=== PATIENT | female | born 1995 | race Hispanic/Latino ===

== ENCOUNTER 2019-09-22 14:26 | Emergency (ER) | payer BC ==
--- NOTE | 2019-09-22 15:58 | EDPHYS ---
Physician Documentation [facility] Name: Shania Groves Age: 24 yrs Sex: Female : 1995 Arrival Date: 09/22/2019 Time: 14:35 Bed 6 Private MD: ED Physician Uday Jc HPI: 09/21 15:39 This 24 yrs old Female presents to ER via Ambulatory with complaints of Cold jr8 Symptoms, Cough, Headache. 15:53 Cough, congestion, headache, subjective fever, body aches, sore throat, ear pain for 2 jr8 days. Concerned she has COVID and wanted to be evaluated . Onset: The symptoms/episode began/occurred yesterday. Severity of symptoms: At their worst the symptoms were mild in the emergency department the symptoms are unchanged. The patient has not experienced similar symptoms in the past. The patient has not recently seen a physician. 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 - Social history:: Smoking status: Patient denies any tobacco usage or history of. Patient uses alcohol, only on a social basis. Patient/guardian denies using street drugs, tobacco products. ROS: 15:53 Eyes: Negative for injury, pain, redness, and discharge, Neck: Negative for injury, jr8 pain, and swelling, Cardiovascular: Negative for chest pain, palpitations, and edema, Abdomen/GI: Negative for abdominal pain, nausea, vomiting, diarrhea, and constipation, Back: Negative for injury and pain, MS/Extremity: Negative for injury and deformity, Skin: Negative for injury, rash, and discoloration. 15:53 Constitutional: Positive for body aches, chills, fatigue, malaise. 15:53 ENT: Positive for ear pain, sore throat. 15:53 Respiratory: Positive for cough, Negative for dyspnea on exertion, shortness of breath, sputum production, wheezing. 15:53 Neuro: Positive for headache. Exam: 15:53 Constitutional: This is a well developed, well nourished patient who is awake, alert, jr8 and in no acute distress. Eyes: Pupils equal round and reactive to light, extra-ocular motions intact. Lids and lashes normal. Conjunctiva and sclera are non-icteric and not injected. Cornea within normal limits. Periorbital areas with no swelling, redness, or edema. ENT: Nares patent. No nasal discharge, no septal abnormalities noted. Tympanic membranes are normal and external auditory canals are clear. Oropharynx with no redness, swelling, or masses, exudates, or evidence of obstruction, uvula midline. Mucous membranes moist. Neck: Trachea midline, no thyromegaly or masses palpated, and no cervical lymphadenopathy. Supple, full range of motion without nuchal rigidity, or vertebral point tenderness. No Meningismus. Cardiovascular: Regular rate and rhythm with a normal S1 and S2. No gallops, murmurs, or rubs. Normal PMI, no JVD. No pulse deficits. Respiratory: Lungs have equal breath sounds bilaterally, clear to auscultation and percussion. No rales, rhonchi or wheezes noted. No increased work of breathing, no retractions or nasal flaring. Abdomen/GI: Soft, non-tender, with normal bowel sounds. No distension or tympany. No guarding or rebound. No evidence of tenderness throughout. Back: No spinal tenderness. No costovertebral tenderness. Full range of motion. Skin: Warm, dry with normal turgor. Normal color with no rashes, no lesions, and no evidence of cellulitis. MS/ Extremity: Pulses equal, no cyanosis. Neurovascular intact. Full, normal range of motion. Neuro: Awake and alert, GCS 15, oriented to person, place, time, and situation. Cranial nerves II-XII grossly intact. Motor strength 5/5 in all extremities. Sensory grossly intact. Cerebellar exam normal. Normal gait. Vital Signs: 14:42 BP 128 / 93; Pulse 77; Resp 17; Temp 98.2; Pulse Ox 98% ; Pain 9/10; ll1 MDM: 14:55 Patient medically screened. jr8 15:53 Data reviewed: vital signs, nurses notes, lab test result(s), and as a result, I will jr8 discharge patient. Data interpreted: Pulse oximetry: on room air is 98 %. Interpretation: normal. Counseling: I had a detailed discussion with the patient and/or guardian regarding: the historical points, exam findings, and any diagnostic results supporting the discharge/admit diagnosis, lab results, the need for outpatient follow up, a family practitioner, to return to the emergency department if symptoms worsen or persist or if there are any questions or concerns that arise at home. ED course: Discussed with patient that she needs to continue to isolate at home until PCR results come back. If she were to feel worse or start to have shortness of breath to come back for further medical evaluation . 09/21 15:08 Order name: SEMAJ em Administered Medications: No medications were administered Disposition: 16:13 Co-signature as Attending Physician, Uday Jc MD. rn Disposition: 09/22/19 15:57 Discharged to Home. Impression: Viral infection, unspecified. - Condition is Stable. - Discharge Instructions: COVID-19. - Medication Reconciliation Form, Thank You Letter, Antibiotic Education, Prescription Opioid Use form. - Follow up: Private Physician; When: As needed; Reason: Recheck today's complaints, Continuance of care, Re-evaluation by your physician. - Problem is new. - Symptoms are unchanged. Signatures: Dispatcher [employer] Gm Jose RN RN Uday Callaway MD MD rn Roszak, Josh, PA PA jrGerald Taylor RN RN ll1 Corrections: (The following items were deleted from the chart) 16:08 15:57 09/22/2019 15:57 Discharged to Home. Impression: Viral infection, unspecified. em Condition is Stable. Forms are Medication Reconciliation Form, Thank You Letter, Antibiotic Education, Prescription Opioid Use. Follow up: Private Physician; When: As needed; Reason: Recheck today's complaints, Continuance of care, Re-evaluation by your physician. Problem is new. Symptoms are unchanged. jr8
--- NOTE | 2019-09-22 15:58 | ER ---
Nurse's Notes [facility] Name: Shania Groves Age: 24 yrs Sex: Female : 1995 Arrival Date: 09/22/2019 Time: 14:35 Bed 6 Private MD: Diagnosis: Viral infection, unspecified Presentation: 09/21 14:42 Chief complaint: Patient states: Cough, congestion, right ear pain, body aches, no ll1 appetite for 3 days. Fever 99.2 last night. Coronavirus screen: Surgical mask placed on patient. Patient moved to private room, placed in contact and droplet isolation with eye protection until further assessment. Patient reports a cough. Patient denies shortness of breath or difficulty breathing. Patient denies measured and/or subjective temperature greater than 100.4F prior to today's visit. Patient denies travel on a cruise ship or to a country the [facility] currently lists as an affected area. Patient denies contact with known and/or suspected case of COVID-19. Ebola Screen: Patient denies travel to an Ebola-affected area in the 21 days before illness onset. Initial Sepsis Screen: Does the patient meet any 2 criteria? No. Patient's initial sepsis screen is negative. Does the patient have a suspected source of infection? No. Patient's initial sepsis screen is negative. Risk Assessment: Do you want to hurt yourself or someone else? Patient reports no desire to harm self or others. Onset of symptoms was September 20, 2019. 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 - Social history:: Smoking status: Patient denies any tobacco usage or history of. Patient uses alcohol, only on a social basis. Patient/guardian denies using street drugs, tobacco products. Screenin:59 Abuse screen: Denies threats or abuse. Nutritional screening: No deficits noted. em Tuberculosis screening: No symptoms or risk factors identified. Fall Risk None identified. Assessment: 15:00 General: Appears in no apparent distress. uncomfortable, slender, Behavior is calm, em cooperative, appropriate for age, Reports fever for 2-3 days, feeling ill for 2-3 days, fatigue for 2-3 days. Pain: Complains of pain in head Pain currently is 9 out of 10 on a pain scale. Neuro: Level of Consciousness is awake, alert, obeys commands, Oriented to person, place, time, situation, Appropriate for age. Cardiovascular: Capillary refill < 3 seconds Patient's skin is warm and dry. Respiratory: Airway is patent Respiratory effort is even, unlabored, Respiratory pattern is regular, symmetrical. GI: Reports intolerance of fluids, intolerance of food, since 2 days. Derm: Skin is intact, is healthy with good turgor, Skin is pink, warm \T\ dry. Musculoskeletal: Capillary refill < 3 seconds, Range of motion: intact in all extremities. Vital Signs: 14:42 BP 128 / 93; Pulse 77; Resp 17; Temp 98.2; Pulse Ox 98% ; Pain 9/10; ll1 ED Course: 14:35 Patient arrived in ED. fj1 14:44 Triage completed. ll1 14:44 Arm band placed on Patient placed in an exam room, on a stretcher. ll1 14:51 Gm Klein, BONNY is Primary Nurse. em 14:55 Tae Mills PA is PHCP. jr8 14:55 Uday Jc MD is Attending Physician. jr8 14:59 Patient has correct armband on for positive identification. Placed in gown. Bed in low em position. 16:08 No provider procedures requiring assistance completed. Patient did not have IV access em during this emergency room visit. Administered Medications: No medications were administered Outcome: 15:57 Discharge ordered by . jr8 16:08 Discharged to home ambulatory. em 16:08 Condition: good 16:08 Discharge instructions given to patient, Instructed on discharge instructions, follow up and referral plans. Demonstrated understanding of instructions, follow-up care. 16:08 Patient left the ED. em Addendum: 09/24/2019 12:16 Addendum: Other Dr. Peres notified pt of positive COVID result, pt advised to i w quarantine for at least 14 days and at least until symptom free for 72 hours. Signatures: Gm Klein RN RN Glenis Nassar RN RN Tae Mills PA PA jr8 James, Frank [facility] Gerald Mo RN RN [facility]
--- OUTSIDE RECORDS SUMMARY | 2019-09-22 16:35 | XMS REPORT | Continuity of Care Document ---
:1995 Author Organization [facility] t Address [address] [place] [address] Dr. Robbins [address] [place] [id number] Care Team Providers Name Role Phone Unavailable Unavailable Unavailable Problems This patient has no known problems. Allergies, Adverse Reactions, Alerts This patient has no known allergies or adverse reactions. Medications This patient has no known medications. Procedures This patient has no known procedures. Encounters Start End Encounter Admission Attending Care Care Encounter Source Date/Time Date/Time Type Type Clinicians Facility Department ID 2019-02-22 Outpatient [facility] [id number] [facility] 15:07:08 2018-08-25 2018-08-25 Outpatient [facility] [address] [facility] 08:59:00 08:59:00 Results This patient has no known results.
[2019-09-22 18:43] VITALS: BP 128/93; TEMP 98.2; O2SAT 98
== END 2019-09-22 16:08 | disposition home or self-care (01) ==
LOC: ER 14:26
DX: U07.1 COVID-19 (principal); B34.9 Viral infection, unspecified; I10 Essential (primary) hypertension
CPT/HCPCS: 99281; U0001

== ENCOUNTER 2020-02-13 17:34 | Emergency (ER) | payer BC ==
--- OUTSIDE RECORDS SUMMARY | 2020-02-13 17:36 | XMS REPORT | Continuity of Care Document ---
:1995 Author Organization [facility] t Address [address] [place] [address] Dr. Robbins [address] [place] [id number] Care Team Providers Name Role Phone Unavailable Unavailable Unavailable Problems This patient has no known problems. Allergies, Adverse Reactions, Alerts This patient has no known allergies or adverse reactions. Medications This patient has no known medications. Procedures This patient has no known procedures. Encounters Start End Encounter Admission Attending Care Care Encounter Source Date/Time Date/Time Type Type Clinicians Facility Department ID 2019-02-22 Outpatient [facility] [id number] [facility] 15:07:08 2020-01-14 2020-01-14 Outpatient [facility] [id number] [facility] 08:44:00 08:44:00 2019-12-27 2019-12-27 Outpatient [facility] [id number] [facility] 05:57:00 05:57:00 2019-12-10 2019-12-10 Outpatient [facility] [id number] [facility] 07:44:00 07:44:00 2018-08-25 2018-08-25 Outpatient [facility] [address] [facility] 08:59:00 08:59:00 Results This patient has no known results.
[2020-02-13] MEDS ORDERED: ONDANSETRON 4 MG/2 ML VIAL ONE (18:15)
[2020-02-13] MEDS ORDERED: NA CHLORIDE 0.9% 1,000 ML ONE (18:16)
[2020-02-13 18:20] LABS: Urine Specific Gravity 1.025 (1.005-1.030)
[2020-02-13 18:20] LABS: Urine Blood 3+ (NEG); Urine Glucose NEGATIVE (NEG); Urine Protein 1+ (NEG); Urine Specific Gravity 1.025 (1.005-1.030)
[2020-02-13 18:22] LABS: Urine Bacteria <20 /HPF (<20); Urine Culture Reflex Order NOT NEEDED; Urine RBC >50 /HPF (NONE SEEN)
[2020-02-13 18:29] LABS: Absolute Lymphocytes (CBC) 1.4 K/uL (0.7-4.9); Basophils % 0.6 % (0-1.3); Hematocrit 32.2 % (36.0-45.0); Lymphocytes % 23.9 % (15.3-44.8); RBC Red Blood Cell Count 3.57 M/uL (3.86-4.86)
[2020-02-13 18:44] LABS: ALT/SGPT 260 U/L (12-78); AST/SGOT 182 U/L (15-37); Albumin 3.7 g/dL (3.4-5.0); Alkaline Phosphatase 954 U/L (45-117); BUN Blood Urea Nitrogen 11 mg/dL (7-18); Bicarbonate 25 mmol/L (21-32); Bilirubin Direct 3.5 mg/dL (0-0.2); Bilirubin Total 4.5 mg/dL (0.2-1.0); Glucose Level 134 mg/dL (74-106); Lipase 116 U/L (73-393); Potassium 3.4 mmol/L (3.5-5.1); Sodium Level 138 mmol/L (136-145)
--- NOTE | 2020-02-13 19:42 | RAD REPORT ---
EXAM DESCRIPTION: CT - Abdomen Pelvis W Contrast - 02/13/2020 7:14 pm CLINICAL HISTORY: ABD PAIN, history of liver transplant for biliary atresia COMPARISON: Abdomen Pelvis W Contrast dated 08/09/2015 TECHNIQUE: Biphasic, helical CT imaging of the abdomen and pelvis was performed following 100 ml non -ionic IV contrast. No oral contrast administered. All CT scans are performed using dose optimization technique as appropriate and may include automated exposure control or mA/KV adjustment according to patient size. FINDINGS: No suspicious findings in the lung bases. Liver size is normal. No focal liver parenchymal lesion. Portal veins and hepatic vein show no suspic ious findings. Pancreas and spleen show no suspicious findings. Gallbladder is absent. Pneumobilia is present, not unexpected. No biliary tree dilatation. Symmetric renal function is seen with no hydronephrosis or suspicious renal mass. No pyelonephritis o r acute parenchymal process. Urinary bladder is contracted which accentuates wall thickness. This pre cludes the ability to detect cystitis. There is no bladder calculus. No adrenal abnormalities. Uterus and ovaries show no suspicious findings. Patient is actively menstruating which would account for th e low-density within the endometrial cavity in the rather vigorous enhancement of the myometrium. No gastric dilatation or wall thickening. No dilated large or small bowel loop. No acute or active co meme process identified. No free air, free fluid or inflammatory stranding. No hernia, mass or bulky lymphadenopathy. No suspicious bony findings. IMPRESSION: As detailed above, no acute or emergent finding identifiable.
--- NOTE | 2020-02-13 21:04 | EDPHYS ---
Physician Documentation [facility] Name: Shania Groves Age: 24 yrs Sex: Female : 1995 Arrival Date: 02/13/2020 Time: 17:34 Bed 6 Private MD: ED Physician Ranjit Johnston HPI: 02/12 17:54 This 24 yrs old Female presents to ER via Wheelchair with complaints of rn Abdominal Pain, Vomiting. 17:54 The patient presents to the emergency department with nausea, vomiting, abdominal pain. rn Onset: The symptoms/episode began/occurred this morning. Possible causes: unknown. The symptoms are aggravated by pressure, The symptoms are alleviated by nothing. Associated signs and symptoms: Pertinent positives: abdominal pain, nausea, vomiting, Pertinent negatives: diarrhea, fever. Severity of symptoms: At their worst the symptoms were moderate. The patient has not experienced similar symptoms in the past. The patient has not recently seen a physician. 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 - Social history:: Smoking status: Patient denies any tobacco usage or history of. - Family history:: not pertinent. - Hospitalizations: : No recent hospitalization is reported. ROS: 17:54 Constitutional: Negative for fever, chills, and weight loss, Eyes: Negative for injury, rn pain, redness, and discharge, ENT: Negative for injury, pain, and discharge, Cardiovascular: Negative for chest pain, palpitations, and edema, Respiratory: Negative for shortness of breath, cough, wheezing, and pleuritic chest pain, Abdomen/GI: + abdominal pain, + vomiting, + anorexia Back: Negative for injury and pain, MS/Extremity: Negative for injury and deformity, Skin: Negative for injury, rash, and discoloration, Neuro: Negative for weakness, numbness, tingling, and seizure. Exam: 17:54 Constitutional: This is a well developed, well nourished patient who is awake, alert rn Head/Face: Normocephalic, atraumatic. Eyes: Pupils equal round and reactive to light, extra-ocular motions intact. Lids and lashes normal. Conjunctiva and sclera are non-icteric and not injected. Cornea within normal limits. Periorbital areas with no swelling, redness, or edema. Cardiovascular: Regular rate and rhythm. No pulse deficits. Respiratory: No increased work of breathing, no retractions or nasal flaring. Abdomen/GI: soft, + tender RUQ/epigastric/periumbilical/RLQ, no distension, no mass Back: No spinal tenderness. Skin: Warm, dry MS/ Extremity: Pulses equal, no cyanosis. Neuro: Awake and alert, GCS 15 Vital Signs: 17:38 BP 128 / 87; Pulse 70; Resp 16 S; Temp 97(TE); Pulse Ox 99% on R/A; Weight 47.63 kg ca1 (R); Height 5 ft. 0 in. (152.40 cm) (R); Pain 10/10; 19:29 BP 102 / 60; Pulse 66; Resp 16; Pulse Ox 100% on R/A; Pain 0/10; lp1 20:44 BP 101 / 67; Pulse 68; Resp 16; Pulse Ox 100% on R/A; lp1 17:38 Body Mass Index 20.51 (47.63 kg, 152.40 cm) ca1 MDM: 17:43 Patient medically screened. rn 18:54 Transition of care: After a detail discussion of the patient's case, care is rn transferred to Ranjit Johnston MD. 20:59 Differential diagnosis: Nonspecific abd pain, gastritis, cholecystitis, pancreatitis, mh7 appendicitis, diverticulitis. Data reviewed: vital signs, nurses notes, old medical records, lab test result(s), CBC, electrolytes, urinalysis, radiologic studies, CT scan. Data interpreted: Pulse oximetry: on room air is 100 %. Counseling: I had a detailed discussion with the patient and/or guardian regarding: the historical points, exam findings, and any diagnostic results supporting the discharge/admit diagnosis, lab results, radiology results, to return to the emergency department if symptoms worsen or persist or if there are any questions or concerns that arise at home. Response to treatment: the patient's symptoms have resolved after treatment, the patient's blood pressure is in an acceptable range, mental status has returned to baseline, the patient no longer shows bradycardia, the patient is not short of breath, the patient is not tachycardic, the patient's pain is gone, the patient's temperature has normalized, the patient's condition has returned to base line. 21:01 Refusal of service: The patient/guardian displays adequate decision making capability [facility] and despite a detailed discussion of alternatives, benefits, risks, and consequences refuses: Admission to the hospital for further work-up and treatment. 02/13 07:10 ED course: NAD, VSS, no focal neurological deficits. Discussed test results with mh7 patient and her family. She was aware that her liver enzymes were elevated as they have been usually. She states that she has an appointment to see her doctor on 02/14/20 and will be getting lab work as well. I offered to discuss findings with her doctor but patient declined and requested to be discharged from the ED.. 02/12 17:54 Order name: Basic Metabolic Panel; Complete Time: 18:53 02/12 17:54 Order name: CBC with Diff; Complete Time: 18:35 02/12 17:54 Order name: Hepatic Function; Complete Time: 18:53 02/12 17:54 Order name: Lipase; Complete Time: 18:53 02/12 17:54 Order name: Urine Microscopic Only; Complete Time: 18:28 02/12 17:54 Order name: Flu; Complete Time: 18:53 02/12 17:54 Order name: IV Saline Lock; Complete Time: 18:23 02/12 17:54 Order name: Labs collected and sent; Complete Time: 18:23 02/12 17:54 Order name: Urine Test (obtain specimen); Complete Time: 18:09 02/12 18:10 Order name: Urine Dipstick--Ancillary (enter results); Complete Time: 18:28 02/12 18:10 Order name: Urine --Ancillary (enter results); Complete Time: 18:28 02/12 18:35 Order name: CT Abd/Pelvis - IV Contrast Only; Complete Time: 20:07 02/12 17:54 Order name: Urine Dipstick-Ancillary (obtain specimen); Complete Time: 18:09 rn Administered Medications: 02/12 18:18 Drug: NS 0.9% 500 ml Route: IV; Rate: bolus; Site: left antecubital; rb3 20:45 Follow up: Response: No adverse reaction; IV Status: Completed infusion; IV Intake: mg2 500ml 18:18 Drug: Zofran (Ondansetron) 4 mg Route: IVP; Site: left antecubital; rb3 18:40 Follow up: Response: No adverse reaction; Nausea is decreased rb3 Disposition: 02/13/20 21:03 Discharged to Home. Impression: Unspecified abdominal pain, Liver transplant rejection - Chronic. - Condition is Stable. - Discharge Instructions: Abdominal Pain, Adult, Liver Failure. - Prescriptions for Zofran ODT 4 mg Oral tablet,disintegrating - place 1 tablet by TRANSLINGUAL route every 8 hours As needed; 6 tablet. - Medication Reconciliation Form, Thank You Letter, Antibiotic Education, Prescription Opioid Use form. - Follow up: Private Physician; When: Tomorrow; Reason: Worsening of condition, Recheck today's complaints, Continuance of care, Re-evaluation by your physician. - Problem is an acute exacerbation. - Symptoms have improved. Signatures: Dispatcher [employer] EDMS Uday Jc MD MD rn Pena, Laura RN RN lp1 Susan Kaur RN RN ca1 Ranjit Johnston MD MD 7 Cristal Veronica, BONNY RN rb3 Kody Echeverria RN mg2 Corrections: (The following items were deleted from the chart) 21:11 21:03 02/13/2020 21:03 Discharged to Home. Impression: Unspecified abdominal pain; lp1 Liver transplant rejection - Chronic. Condition is Stable. Forms are Medication Reconciliation Form, Thank You Letter, Antibiotic Education, Prescription Opioid Use. Follow up: Private Physician; When: Tomorrow; Reason: Worsening of condition, Recheck today's complaints, Continuance of care, Re-evaluation by your physician. Problem is an acute exacerbation. Symptoms have improved. mh7
--- NOTE | 2020-02-13 21:04 | ER ---
Nurse's Notes [facility] Name: Shania Groves Age: 24 yrs Sex: Female : 1995 Arrival Date: 02/13/2020 Time: 17:34 Bed 6 Private MD: Diagnosis: Unspecified abdominal pain;Liver transplant rejection-Chronic Presentation: 02/12 17:38 Chief complaint: Parent and/or Guardian states: mother: abdominal pain all over 45 mins ca1 BUDGET MANAGER, N/V. She's a liver pt, had blood work Friday and everything came back okay. She also has her period now, she gets cramps but not as bad as this. Coronavirus screen: Client denies travel out of the [place] in the last 14 days. nausea, vomiting. Client presents with at least one sign or symptom that may indicate coronavirus-19. Standard/surgical mask placed on the client. Provider contacted for isolation considerations. Ebola Screen: Patient negative for fever greater than or equal to 101.5 degrees Fahrenheit, and additional compatible Ebola Virus Disease symptoms Patient denies exposure to infectious person. Patient denies travel to an Ebola-affected area in the 21 days before illness onset. No symptoms or risks identified at this time. Initial Sepsis Screen: Does the patient meet any 2 criteria? No. Patient's initial sepsis screen is negative. Does the patient have a suspected source of infection? No. Patient's initial sepsis screen is negative. Risk Assessment: Do you want to hurt yourself or someone else? Patient reports no desire to harm self or others. Onset of symptoms was February 13, 2020. 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 - Social history:: Smoking status: Patient denies any tobacco usage or history of. - Family history:: not pertinent. - Hospitalizations: : No recent hospitalization is reported. Screenin:54 Abuse screen: Denies threats or abuse. Tuberculosis screening: No symptoms or risk rb3 factors identified. Fall Risk None identified. 19:17 Nutritional screening: No deficits noted. lp1 Assessment: 17:54 General: Appears in no apparent distress. Behavior is calm, cooperative. Pain: rb3 Complains of pain in abdomen Pain began 1 hour ago. Neuro: Level of Consciousness is awake, alert, obeys commands, Oriented to person, place, time, situation. Cardiovascular: Patient's skin is warm and dry. Respiratory: Airway is patent Respiratory effort is even, unlabored, Respiratory pattern is regular, symmetrical. GI: Reports nausea, vomiting. 19:09 Reassessment: patient sent to CT scan via wheelchair. mg2 19:16 Reassessment: Patient returned from CT. lp1 19:29 Reassessment: Patient appears in no apparent distress at this time. Patient denies lp1 nausea and abdominal pain at this time; mother at bedside, aware of waiting for CT results Patient states feeling better. 20:44 Reassessment: Patient reports hx of symptoms with menstrual cycle; mother states lp1 working on appt with PANEL MAKER for control of menstrual symptoms nausea, fatigue, low back pain. 20:58 Reassessment: Dr. Johnston at bedside to discuss results with patient and mother, lp1 demonstrate understanding and follow up with liver transplant doctors for elevated enzymes, reports appt for tomorrow. Vital Signs: 17:38 BP 128 / 87; Pulse 70; Resp 16 S; Temp 97(TE); Pulse Ox 99% on R/A; Weight 47.63 kg ca1 (R); Height 5 ft. 0 in. (152.40 cm) (R); Pain 10/10; 19:29 BP 102 / 60; Pulse 66; Resp 16; Pulse Ox 100% on R/A; Pain 0/10; lp1 20:44 BP 101 / 67; Pulse 68; Resp 16; Pulse Ox 100% on R/A; lp1 17:38 Body Mass Index 20.51 (47.63 kg, 152.40 cm) ca1 ED Course: 17:34 Patient arrived in ED. ag5 17:40 Triage completed. ca1 17:41 Arm band placed on right wrist. ca1 17:43 Uday Jc MD is Attending Physician. rn 17:44 Cristal Veronica, BONNY is Primary Nurse. rb3 17:54 Patient has correct armband on for positive identification. Bed in low position. Call rb3 light in reach. Side rails up X 1. Pulse ox on. NIBP on. Warm blanket given. 18:23 Flu Sent. rb3 19:00 Attending Physician role handed off by Uday Jc MD [facility] 19:00 Ranjit Johnston MD is Attending Physician. 7 19:13 CT Abd/Pelvis - IV Contrast Only In Process Unspecified. EDMS 19:30 No provider procedures requiring assistance completed. lp1 21:11 IV discontinued, No redness/swelling at site. Pressure dressing applied. lp1 Administered Medications: 18:18 Drug: NS 0.9% 500 ml Route: IV; Rate: bolus; Site: left antecubital; rb3 20:45 Follow up: Response: No adverse reaction; IV Status: Completed infusion; IV Intake: mg2 500ml 18:18 Drug: Zofran (Ondansetron) 4 mg Route: IVP; Site: left antecubital; rb3 18:40 Follow up: Response: No adverse reaction; Nausea is decreased rb3 Intake: 20:45 IV: 500ml; Total: 500ml. mg2 Outcome: 21:03 Discharge ordered by . [facility] 21:11 Discharged to home ambulatory, with family. lp1 21:11 Condition: good 21:11 Discharge instructions given to patient, family, Instructed on discharge instructions, follow up and referral plans. medication usage, Demonstrated understanding of instructions, follow-up care, medications, Prescriptions given X 1. 21:11 Patient left the ED. lp1 Signatures: Dispatcher [employer] EDWA Uday Jc MD MD rn Pena, Laura, RN RN lp1 Kody Echeverria RN RN mg2 Susan Kaur RN RN ca1 Jalen Bro 5 Ranjit Johnston MD MD [facility] Cristal Veronica, BONNY RN rb3
[2020-02-14 00:53] VITALS: TEMP 97
[2020-02-14 00:55] VITALS: O2SAT 100
[2020-02-14 00:57] VITALS: BP 101/67
== END 2020-02-13 21:11 | disposition home or self-care (01) ==
LOC: ER 17:34
DX: R10.9 Unspecified abdominal pain (principal); T86.41 Liver transplant rejection
CPT/HCPCS: 96361; 85025; 80048; 36415; 81025; 80076; 83690; 87804 ×2; 74177; 96374; 99284; Q9967; J7030; J2405; 81003; 81015

== ENCOUNTER 2023-11-08 06:50 | Emergency (ER) | payer BC ==
--- OUTSIDE RECORDS SUMMARY | 2023-11-08 06:53 | XMS REPORT | Continuity of Care Document ---
Author Name Unknown Address [address] [place] [address] [facility] [address] [place] [address] Care Team Providers Care Customer Manager Name Role Phone ROBERT GASPAR Attending Clinician Marline das Encounters Start Date/Time End Date/Time Encounter Type Admission Type Attending Clinicians Care Facility Care Department Encounter ID Source 2022-02-25 13:15:36 Outpatient ROBERT GASPAR [facility] [place] [id number] [facility] 2020-05-29 08:19:20 Outpatient ROBERT GASPAR [facility] [id number] [facility] 2019-02-22 15:07:08 Outpatient [facility] [id number] [facility] 2023-05-23 00:00:00 2023-06-21 23:59:00 Outpatient ROBERT GASPAR [facility] [place] [id number] [facility] 2021-08-17 08:03:00 2021-09-15 23:59:00 Outpatient ROBERT GASPAR [facility] [id number] [facility] 2021-02-16 07:32:00 2021-03-17 23:59:00 Outpatient ROBERT GASPAR [facility] [id number] [facility] 2020-08-15 07:38:00 2020-09-13 23:59:00 Outpatient ROBERT GASPAR [facility] [id number] [facility] 2020-02-18 08:08:00 2020-03-18 23:59:00 Outpatient ROBERT GASPAR [facility] [id number] [facility] 2020-01-14 08:44:00 2020-02-12 23:59:00 Outpatient ROBERT GASPAR [facility] [id number] [facility] 2019-12-27 05:57:00 2019-12-27 05:57:00 Outpatient ROBERT GASPAR [facility] [id number] [facility] 2019-12-10 07:44:00 2019-12-10 07:44:00 Outpatient ROBERT GASPAR [facility] [id number] [facility] 2018-08-25 08:59:00 2018-08-25 08:59:00 Outpatient [facility] [id number] [facility]
[2023-11-08] MEDS ORDERED: MORPHINE 2 MG/ML SYR ONE (07:37)
[2023-11-08] MEDS ORDERED: ONDANSETRON 4 MG/2 ML VIAL ONE (07:37)
[2023-11-08] MEDS ORDERED: NA CHLORIDE 0.9% 1,000 ML ONE (07:38)
[2023-11-08] MEDS ORDERED: FAMOTIDINE 20 MG/2 ML VIAL IV ONE (07:38)
[2023-11-08 08:02] LABS: Absolute Basophils 0.1 K/uL (0-0.5); Absolute Eosinophils 0.2 K/uL (0-0.5); Absolute Lymphocytes (CBC) 1.7 K/uL (0.7-4.9); Absolute Monocytes 0.5 K/uL (0.1-1.3); Basophils % 0.7 % (0-1.3); Eosinophils % 2.1 % (0-4.4); Hematocrit 33.1 % (36.0-45.0); Lymphocytes % 17.8 % (15.3-44.8); MCH 28.2 pg (27.0-35.0); MCHC 33.1 g/dL (32.0-36.0); MCV 85.2 fL (80-100); MPV 8.9 fL (7.6-11.3); Monocytes % 4.9 % (3.3-12.3); Neutrophils % 74.5 % (41.7-73.7); Platelets 244 thou/uL (152-406); RBC Red Blood Cell Count 3.89 M/uL (3.86-4.86); Red Cell Distribution Width 16.6 % (12.1-15.2)
[2023-11-08 08:11] LABS: Specific Gravity 1.017 (1.005-1.030); Urine Bacteria 20-50 /HPF (<20); Urine Bilirubin NEGATIVE (Negative); Urine Blood 3+ (Negative); Urine Clarity Extremely Turbid (Clear); Urine Color Yellow (Yellow); Urine Crystals Unidentified Few /HPF (None Seen); Urine Culture Reflex Order REFLEXED; Urine Glucose NEGATIVE (Negative); Urine Ketones NEGATIVE (Negative); Urine Microscopic Reflex YN ORDER UMIC; Urine Mucus Slight /HPF (None Seen); Urine Nitrite NEGATIVE (Negative); Urine Protein 2+ (Negative); Urine RBC >50 /HPF (None Seen); Urine Urobilinogen 1+ (Normal); Urine WBC >50 /HPF (<5); Urine WBC Clump Moderate /HPF (None Seen)
[2023-11-08 08:12] LABS: PT Prothrombin Time 11.7 SECONDS (9.4-12.5); PTT, Activated Partial Thromb 33.9 SECONDS (24.3-36.9); Protime INR 1.05; Specific Gravity 1.017 (1.005-1.030)
[2023-11-08 08:22] LABS: Albumin 3.2 g/dL (3.4-5.0); Albumin/Globulin Ratio 0.6 (1.1-1.8); Anion Gap 8.7 mEq/L (5.0-15.0); Bilirubin Total 2.8 mg/dL (0.2-1.0); Potassium 3.7 mEq/L (3.5-5.1); Protein, Total 8.2 g/dL (6.4-8.2)
[2023-11-08] MEDS ORDERED: CEFTRIAXONE 1000 MG/VIAL ONE (09:35)
[2023-11-08] MEDS ORDERED: NA CHLORIDE 0.9% 100 ML ONE (09:36)
[2023-11-08] MEDS ORDERED: CEFDINIR 300 MG CAP PO ONE (09:36)
--- NOTE | 2023-11-08 09:52 | RAD REPORT ---
EXAM DESCRIPTION: CT - Abdomen Pelvis W Contrast - 11/08/2023 8:49 am CLINICAL HISTORY: Abdominal pain COMPARISON: 2019 TECHNIQUE: Computed axial tomography of the abdomen pelvis was obtained. 100 cc Isovue-300 was admin istered intravenously. Oral contrast was not requested which limits evaluation of bowel and appendix All CT scans are performed using dose optimization technique as appropriate and may include automated exposure control or mA/KV adjustment according to patient size. FINDINGS: Chronic pneumobilia. Cholecystectomy The liver, spleen, pancreas, adrenal and kidneys appear unremarkable. There is no evidence of diverticulitis. Normal appendix. No adnexal mass Bladder wall thickening IMPRESSION: Bladder wall thickening probably cystitis
--- NOTE | 2023-11-08 10:06 | ER ---
Nurse's Notes [facility] Name: Shania Groves Age: 28 yrs Sex: Female : 1995 Arrival Date: 11/08/2023 Time: 06:50 Bed 13 Private MD: Diagnosis: Liver transplant status;Abdominal pain, unspecified;Vomiting;UTI/ Urinary tract infection, site not specified;Acute cystitis with hematuria Presentation: 11/07 07:05 Chief complaint: Patient states: RIGHT SIDED FLANK PAIN. BURNING WITH URINATION AND jj7 DARK URINE. Coronavirus screen: At this time, the client does not indicate any symptoms associated with coronavirus-19. Ebola Screen: No symptoms or risks identified at this time. Initial Sepsis Screen: Does the patient meet any 2 criteria? No. Patient's initial sepsis screen is negative. Does the patient have a suspected source of infection? No. Patient's initial sepsis screen is negative. Risk Assessment: Do you want to hurt yourself or someone else? Patient reports no desire to harm self or others. 07:05 Method Of Arrival: Ambulatory [facility] 07:05 Acuity: LEA 3 jj7 Triage Assessment: 07:09 General: Appears in no apparent distress. comfortable, Behavior is calm, cooperative, jj7 appropriate for age. Pain: Complains of pain in posterior aspect of right lateral abdomen. : Reports burning with urination. Historical: - Allergies: 07:09 No Known Allergies; jj7 - PMHx: 07:09 biliary atresia; Diabetes - NIDDM; Hypertension; jj7 - PSHx: 07:09 LIVER TRANSPLANT (Hypertension); jj7 - Immunization history:: Adult Immunizations up to date, . - Infectious Disease History:: Denies. - Social history:: Smoking status: Reported history of juuling and/or vaping. Patient/guardian denies using alcohol, street drugs, IV drugs. Screenin:10 [facility] ED Fall Risk Assessment (Adult) History of falling in the last 3 months, bp including since admission No falls in past 3 months (0 pts) Confusion or Disorientation No (0 pts) Intoxicated or Sedated No (0 pts) Impaired Gait No (0 pts) Mobility Assist Device Used No (0 pt) Altered Elimination No (0 pt) Score/Fall Risk Level 0 - 2 = Low Risk. Abuse screen: Denies threats or abuse. Denies injuries from another. Nutritional screening: No deficits noted. Tuberculosis screening: No symptoms or risk factors identified. Assessment: 07:10 General: Appears uncomfortable, Behavior is cooperative, appropriate for age, anxious. bp GI: Bowel sounds present X 4 quads. Abd is soft and non tender X 4 quads. : Reports burning with urination, pain in right flank(s). 08:42 Reassessment: PT TO CT. bp Vital Signs: 07:05 BP 134 / 100; Pulse 92; Resp 18; Temp 97.9; Pulse Ox 100% ; Weight 48.08 kg; Height 5 jj7 ft. 0 in. ; Pain 9/10; 08:30 BP 116 / 83; Pulse 99; Resp 15; Pulse Ox 99% ; bp 11:00 BP 108 / 83; Pulse 70; Resp 16; Pulse Ox 100% ; bp 07:05 Body Mass Index 20.70 (48.08 kg, 152.4 cm) jj7 07:05 Pain Scale: Adult j7 ED Course: 06:52 Patient arrived in ED. jj6 07:09 Castillo Clark, RN is Primary Nurse. bp 07:09 Triage completed. jj7 07:09 Arm band placed on right wrist. Patient placed in an exam room, on a stretcher. jj7 07:10 Patient has correct armband on for positive identification. bp 07:14 Steve Peres MD is Attending Physician. shen 07:50 Initial lab(s) drawn, by ri, sent to lab. Urine collected: clean catch specimen, felicia bp colored. Inserted saline lock: 22 gauge in right forearm, using aseptic technique. Blood collected. Flushed with 10 mL NS. 08:51 CT Abd/Pelvis - IV Contrast Only In Process Unspecified. EDMS 10:59 No provider procedures requiring assistance completed. IV discontinued, intact, bp bleeding controlled, No redness/swelling at site. Pressure dressing applied. Administered Medications: 07:53 Drug: NS 0.9% IV 1000 ml IV at 1 bolus Per protocol; 1000 mL bolus Route: IV; Rate: 1 bp bolus; Site: right forearm; 10:59 Follow up: IV Status: Completed infusion; IV Intake: 1000ml bp 07:53 Drug: Famotidine IVP 20 mg IVP once; dilute with 10 mL 0.9% NaCl; give over 2 minutes bp Route: IVP; Site: right forearm; 10:59 Follow up: Response: No adverse reaction bp 07:53 Drug: Ondansetron IVP 4 mg IVP once; over 2 minutes Route: IVP; Site: right forearm; bp 10:59 Follow up: Response: No adverse reaction bp 07:53 Drug: morphine IVP or IV 2 mg IVP once over 4 mins Route: IVP; Infused Over: 4 mins; bp Site: right forearm; 10:59 Follow up: Response: No adverse reaction bp 09:55 Drug: Rocephin IV 1 grams IV at per protocol once; Given slow IV push per pharmacy bp instructions Route: IV; Rate: per protocol; Site: right antecubital; 10:59 Follow up: IV Status: Completed infusion; IV Intake: 100ml bp 09:55 Drug: Cefdinir PO 300 mg PO once Route: PO; bp 10:58 Follow up: Response: No adverse reaction bp 10:15 Drug: Ciprofloxacin PO 500 mg PO once Route: PO; bp 10:58 Follow up: Response: No adverse reaction bp Medication: 07:10 VIS not applicable for this client. bp Intake: 10:59 IV: 100ml; Total: 100ml. bp 10:59 IV: 1000ml; Total: 1100ml. bp Outcome: 10:06 Discharge ordered by . shen 11:00 Discharged to home ambulatory, bp 11:00 Condition: stable 11:00 Discharge instructions given to patient, Instructed on discharge instructions, follow up and referral plans. medication usage, Demonstrated understanding of instructions, follow-up care, medications, Prescriptions given X 3, 11:01 Patient left the ED. bp Signatures: Dispatcher [employer] Steve Piedra MD MD cha Peltier, Brian, RN RN bp Maryellen Lopez jj6 Kamlesh Daily RN RN jj7
--- NOTE | 2023-11-08 10:06 | EDPHYS ---
Physician Documentation [facility] Name: Shania Groves Age: 28 yrs Sex: Female : 1995 Arrival Date: 11/08/2023 Time: 06:50 Bed 13 Private MD: HEBERT Physician Steve Peres HPI: 11/07 08:08 This 28 yrs old Female presents to ER via Ambulatory with complaints of shen Abdominal Pain, Nausea. 08:08 The patient presents to the emergency department with nausea, vomiting, abdominal pain, shen of the posterior aspect of right lateral abdomen, right upper quadrant and right lower quadrant. Onset: The symptoms/episode began/occurred 1 day(s) ago. Possible causes: unknown. The symptoms are aggravated by nothing. The symptoms are alleviated by nothing. Associated signs and symptoms: The patient has no apparent associated signs or symptoms. Severity of symptoms: At their worst the symptoms were moderate in the emergency department the symptoms are unchanged. The patient has not experienced similar symptoms in the past. Historical: - Allergies: 07:09 No Known Allergies; jj7 - PMHx: 07:09 biliary atresia; Diabetes - NIDDM; Hypertension; jj7 - PSHx: 07:09 LIVER TRANSPLANT (Hypertension); jj7 - Immunization history:: Adult Immunizations up to date, . - Infectious Disease History:: Denies. - Social history:: Smoking status: Reported history of juuling and/or vaping. Patient/guardian denies using alcohol, street drugs, IV drugs. ROS: 08:09 Constitutional: Negative for fever, chills, and weight loss, Eyes: Negative for injury, shen pain, redness, and discharge, ENT: Negative for injury, pain, and discharge, Neck: Negative for injury, pain, and swelling, Cardiovascular: Negative for chest pain, palpitations, and edema, Respiratory: Negative for shortness of breath, cough, wheezing, and pleuritic chest pain, Abdomen/GI: Negative for abdominal pain, nausea, vomiting, diarrhea, and constipation, Back: Negative for injury and pain, : Negative for injury, bleeding, discharge, and swelling, MS/Extremity: Negative for injury and deformity, Skin: Negative for injury, rash, and discoloration, Neuro: Negative for headache, weakness, numbness, tingling, and seizure, Psych: Negative for depression, anxiety, suicide ideation, homicidal ideation, and hallucinations, Allergy/Immunology: Negative for hives, rash, and allergies, Endocrine: Negative for neck swelling, polydipsia, polyuria, polyphagia, and marked weight changes, Hematologic/Lymphatic: Negative for swollen nodes, abnormal bleeding, and unusual bruising, Exam: 08:09 Constitutional: This is a well developed, well nourished patient who is awake, alert, shen and in no acute distress. Head/Face: Normocephalic, atraumatic. Eyes: Pupils equal round and reactive to light, extra-ocular motions intact. Lids and lashes normal. Conjunctiva and sclera are non-icteric and not injected. Cornea within normal limits. Periorbital areas with no swelling, redness, or edema. ENT: Nares patent. No nasal discharge, no septal abnormalities noted. Tympanic membranes are normal and external auditory canals are clear. Oropharynx with no redness, swelling, or masses, exudates, or evidence of obstruction, uvula midline. Mucous membranes moist. Neck: Trachea midline, no thyromegaly or masses palpated, and no cervical lymphadenopathy. Supple, full range of motion without nuchal rigidity, or vertebral point tenderness. No Meningismus. Chest/axilla: Normal chest wall appearance and motion. Nontender with no deformity. No lesions are appreciated. Cardiovascular: Regular rate and rhythm with a normal S1 and S2. No gallops, murmurs, or rubs. Normal PMI, no JVD. No pulse deficits. Respiratory: Lungs have equal breath sounds bilaterally, clear to auscultation and percussion. No rales, rhonchi or wheezes noted. No increased work of breathing, no retractions or nasal flaring. Abdomen/GI: Soft, non-tender, with normal bowel sounds. No distension or tympany. No guarding or rebound. No evidence of tenderness throughout. Back: No spinal tenderness. No costovertebral tenderness. Full range of motion. Skin: Warm, dry with normal turgor. Normal color with no rashes, no lesions, and no evidence of cellulitis. MS/ Extremity: Pulses equal, no cyanosis. Neurovascular intact. Full, normal range of motion. Neuro: Awake and alert, GCS 15, oriented to person, place, time, and situation. Cranial nerves II-XII grossly intact. Motor strength 5/5 in all extremities. Sensory grossly intact. Cerebellar exam normal. Normal gait. Psych: Awake, alert, with orientation to person, place and time. Behavior, mood, and affect are within normal limits. Vital Signs: 07:05 BP 134 / 100; Pulse 92; Resp 18; Temp 97.9; Pulse Ox 100% ; Weight 48.08 kg; Height 5 jj7 ft. 0 in. ; Pain 9/10; 08:30 BP 116 / 83; Pulse 99; Resp 15; Pulse Ox 99% ; bp 11:00 BP 108 / 83; Pulse 70; Resp 16; Pulse Ox 100% ; bp 07:05 Body Mass Index 20.70 (48.08 kg, 152.4 cm) [facility] 07:05 Pain Scale: Adult [facility] MDM: 07:[address] [facility] 08:11 Differential diagnosis: Nonspecific abd pain, gastritis, pancreatitis, appendicitis, shen diverticulitis, viral gastroenteritis, gastroenteritis, bowel obstruction. Data reviewed: vital signs, nurses notes, lab test result(s), radiologic studies, CT scan. Consideration of Admission/Observation Escalation of care including admission/observation considered. I considered the following discharge prescriptions or medication management in the emergency department Medications were administered in the Emergency Department. See MAR. Independent interpretation of the following test(s) in the Emergency Department CT Scan: My interpretation is ct ab/pel. Test considered but Not performed: Ultrasound no usg. Care significantly affected by the following chronic conditions: Diabetes, Hypertension, liver transplant. 11/07 07:15 Order name: CBC with Diff; Complete Time: 09: shen 11/07 07:15 Order name: CMP; Complete Time: 09: shen 11/07 07:15 Order name: Lipase; Complete Time: 09: shen 11/07 07:15 Order name: Test, Urine; Complete Time: 09: shen 11/07 07:15 Order name: Urinalysis w/ reflexes; Complete Time: 09: shen 11/07 07:32 Order name: AMMONIA; Complete Time: 09:31 sp 11/07 07:33 Order name: Protime (+inr); Complete Time: 09:31 hb 11/07 07:33 Order name: Ptt, Activated; Complete Time: 09:31 hb 11/07 08:22 Order name: Urine Culture EDMS 08/10 07:15 Order name: CT Abd/Pelvis - IV Contrast Only; Complete Time: 10:00 shen 11/07 07:15 Order name: IV Saline Lock; Complete Time: 07:53 shen 11/07 07:15 Order name: Labs collected and sent; Complete Time: 07:53 shen Administered Medications: 07:53 Drug: NS 0.9% IV 1000 ml IV at 1 bolus Per protocol; 1000 mL bolus Route: IV; Rate: 1 bp bolus; Site: right forearm; 10:59 Follow up: IV Status: Completed infusion; IV Intake: 1000ml bp 07:53 Drug: Famotidine IVP 20 mg IVP once; dilute with 10 mL 0.9% NaCl; give over 2 minutes bp Route: IVP; Site: right forearm; 10:59 Follow up: Response: No adverse reaction bp 07:53 Drug: Ondansetron IVP 4 mg IVP once; over 2 minutes Route: IVP; Site: right forearm; bp 10:59 Follow up: Response: No adverse reaction bp 07:53 Drug: morphine IVP or IV 2 mg IVP once over 4 mins Route: IVP; Infused Over: 4 mins; bp Site: right forearm; 10:59 Follow up: Response: No adverse reaction bp 09:55 Drug: Rocephin IV 1 grams IV at per protocol once; Given slow IV push per pharmacy bp instructions Route: IV; Rate: per protocol; Site: right antecubital; 10:59 Follow up: IV Status: Completed infusion; IV Intake: 100ml bp 09:55 Drug: Cefdinir PO 300 mg PO once Route: PO; bp 10:58 Follow up: Response: No adverse reaction bp 10:15 Drug: Ciprofloxacin PO 500 mg PO once Route: PO; bp 10:58 Follow up: Response: No adverse reaction bp Disposition Summary: 11/08/23 10:06 Discharge Ordered Notes: Location: Home shen Problem: new shen Symptoms: have improved shen Condition: Fair shen Diagnosis - Liver transplant status shen - Abdominal pain, unspecified shen - Vomiting shen - UTI/ Urinary tract infection, site not specified shen - Acute cystitis with hematuria shen Followup: shen - With: Private Physician - When: 2 - 3 days - Reason: Recheck today's complaints, Continuance of care, Re-evaluation by your physician Discharge Instructions: - Discharge Summary Sheet shen - Abdominal Pain, Adult shen - Dysuria shen - Urinary Tract Infection, Adult shen - Urinary Tract Infection, Adult, [id number] shen - Abdominal Pain, Adult, [id number] shen - Flank Pain, Adult, [id number] shen - Vomiting, Adult shen - Liver Transplant, Adult, Care After [facility] Forms: - Medication Reconciliation Form shen - Antibiotic Education shen - Prescription Opioid Use shen - Patient Portal Instructions shen - Leadership Thank You Letter shen - Work release form hb Prescriptions: - ondansetron 4 mg Oral Tablet,disintegrating - take 1 tablet ORAL route every 8-10 hours for 5 days; 20 tablet; Refills: 0, shen Product Selection Permitted - cefdinir 300 mg Oral capsule - take 1 capsule ORAL route 2 times per day; 14 capsule; Refills: 0, Product shen Selection Permitted - Cipro 250 mg Oral tablet - take 1 tablet ORAL route every 12 hours; 10 tablet; Refills: 0, Product shen Selection Permitted Signatures: Dispatcher [employer] Steve Piedra MD MD cha Peltier, Brian, RN RN Kamlesh Abad RN RN jj7
[2023-11-08] MEDS ORDERED: CIPROFLOXACIN HCL 500 MG TAB ONE (10:42)
[2023-11-08 11:09] VITALS: TEMP 97.9
[2023-11-08 11:21] VITALS: BP 108/83; O2SAT 100
== END 2023-11-08 11:01 | disposition home or self-care (01) ==
LOC: ER 06:50
DX: N30.01 Acute cystitis with hematuria (principal); Z94.4 Liver transplant status; R11.10 Vomiting, unspecified; I10 Essential (primary) hypertension; E11.9 Type 2 diabetes mellitus without complications
CPT/HCPCS: 96365; 96361; 87088; 85025; 81001; 87086; 36415; 82140; 81025; 85610; 85730; 83690; 80053; 74177; 96375; 99284; Q9967; J2270; J2405; J7030; J0696